=== PATIENT | female | born 1990 | race Caucasian/White ===

== ENCOUNTER 2017-06-14 21:07 | Emergency (ER) | payer OTHER, MEDICAID, SELFPAY ==
[2017-06-14 21:41] VITALS: BP 92/61; PULSE 97; RESP 16; TEMP 37.1; O2SAT 97; BMI 34.0
--- NOTE | 2017-06-15 00:24 | ED.ABDPAIN ---
HPI - Abdominal Pain General Chief Complaint: Abdominal Pain Stated Complaint: STOMACH PAINS Time Seen by Provider: 06/14/17 21:56 Source: patient and RN notes reviewed Mode of arrival: ambulatory Limitations: no limitations History of Present Illness HPI narrative: Patient is a 26-year-old female who presents with lower abdominal bloating and cramping. [facility]. Since then she has had a.. She started having cramping today no vaginal bleeding no abnormal discharge. No nausea vomiting painful or frequent urination. She is trying to get . She has been taking ibuprofen 800 mg without any relief. MD complaint: abdominal pain Onset (ago): day(s) Related Data Home Medications Medication Instructions Recorded Confirmed levonorgestrel [Liletta] 1 ea IY #0 01/19/17 Previous Rx's Medication Instructions Recorded ciprofloxacin HCl [Cipro] 500 mg PO BID 5 Days #0 tab 12/10/16 cyclobenzaprine 10 mg PO TIDP PRN #10 tab 12/10/16 meloxicam [Mobic] 7.5 mg PO BIDCC PRN #20 tab 12/10/16 meloxicam [Mobic] 15 mg PO AMCC #30 tab 01/23/17 gabapentin 100 mg PO Q8H #120 cap 02/28/17 clotrimazole 10 mg PO 5XD #70 cam 03/04/17 Allergies Allergy/AdvReac Type Severity Reaction Status Date / Time acetaminophen [From VICODIN] Allergy Unknown hives Verified 06/15/17 00:35 amoxicillin [AMOXICILLIN] Allergy Unknown hives Verified 06/15/17 00:35 cefaclor [From CECLOR] Allergy Unknown hives Verified 06/15/17 00:35 hydrocodone [From VICODIN] Allergy Unknown hives Verified 06/15/17 00:35 Review of Systems Review of Systems All systems reviewed & are unremarkable except as noted in HPI and below Constitutional Denies chills, Denies fever(s), Denies lethargy and Denies weakness Cardiovascular Denies chest pain, Denies irregular heart rhythm, Denies lightheadedness, Denies palpitations, Denies dyspnea, Denies dyspnea on exertion and Denies orthopnea Respiratory Denies cough, Denies dyspnea, Denies dyspnea on exertion and Denies wheezing Genitourinary Reports as per HPI, Reports abnormal menses, Reports pelvic pain, Denies vaginal odor and Denies vaginal pruritus Neurologic Denies weakness Endocrine Denies palpitations Allergic/Immunologic Denies wheezing PFSH Surgical History Status post delivery Status post delivery Family History Grandfather Hypertension High cholesterol Stroke Diabetes mellitus Social History Smoking Status: Current every day smoker Exam Const General: cooperative and well developed Nutritional Appearance: well nourished Orientation: alert, awake, oriented x3 and not confused Resp Effort & Inspection: normal respiratory effort, able to speak in complete sentences, no respiratory distress and no use of accessory muscles Auscultation: clear to auscultation bilaterally, no rales, no rhonchi and no wheezes Cardio Rate: regular rate Rhythm: regular rhythm Heart Sounds: no click, no gallops, no murmurs and no rubs Pulses: normal peripheral pulses GI Inspection: normal to inspection Palpation: soft and tender (Mild tenderness in suprapubic lower quadrant area) Percussion: normal to percussion Neuro General: alert, awake and oriented x3 MDM - Abdominal Pain Lab Data Attestation: I reviewed the patient's lab results. Negative urine dip clean Discharge Plan Departure Patient Disposition: Home, Self-Care Clinical Impression: Menstrual cramps Discharge Date/Time: 06/15/17 01:16 Interventions: ED Discharge Assessment Last Done: 06/15/17 01:15 Instructions: Painful Menstrual Periods Activity Restrictions/Additional Instructions: *You have been diagnosed with painful menstrual cramps *What to do: This is likely from recent removal of IUD *Take medications as directed *Follow up with your primary care provider in 2-3 days *Return to ER if you should have any new, worsening or concerning symptoms Prescriptions: No Action ciprofloxacin HCl [Cipro] 500 MG tablet 500 mg PO BID 5 Days Qty: 0 RF: 0 cyclobenzaprine 10 MG tablet 10 mg PO TIDP PRNQty: 10 RF: 0 meloxicam [Mobic] 7.5 MG tablet 7.5 mg PO BIDCC PRNQty: 20 RF: 0 levonorgestrel [Liletta] 1 EACH intrauterine device 1 ea IY Qty: 0 RF: 0 meloxicam [Mobic] 15 MG tablet 15 mg PO AMCC Qty: 30 RF: 3 gabapentin 100 MG capsule 100 mg PO Q8H Qty: 120 RF: 0 clotrimazole 10 MG yuliya 10 mg PO 5XD Qty: 70 RF: 0 Referrals: Tia Wilkins PA-C [Primary Care Provider] - Stand Alone Forms: Work/School Restrictions
[2017-06-15] MEDS: KETOROLAC 60 MG/2 ML VIAL IM (00:34)
[2017-06-15 01:15] VITALS: BP 101/65; PULSE 86; RESP 14; O2SAT 99
== END 2017-06-15 01:16 | disposition home or self-care (01) ==
PROVIDERS: Emergency Provider Emergency Medicine; PCP Physician Assistant
DX: N94.89 Other specified conditions associated with female genital organs and menstrual cycle (principal); R10.9 Unspecified abdominal pain
CPT/HCPCS: 81003; 81025; 96372; 99282; 99283; J1885

== ENCOUNTER 2018-06-22 13:29 | Emergency (ER) | payer MEDICAID, SELFPAY ==
[2018-06-22 13:32] VITALS: BP 120/81; PULSE 98; RESP 21; TEMP 36.1; O2SAT 100
[2018-06-22] MEDS: ONDANSETRON 4 MG/2 ML INJ IV (14:16)
[2018-06-22 14:17] LABS: Add Manual Diff / Slide Review NO; Basophils Absolute Auto 0 /uL (0-100); Basophils Percent Auto 0.4 % (0-2); Eosinophils Absolute Auto 100 /uL (0-450); Eosinophils Percent Auto 1.2 % (2-4); Hematocrit 33.4 % (36-46); Hemoglobin 11.2 g/dL (12.0-16.0); Lymphocytes Absolute Auto 1600 /uL (1100-4500); Lymphocytes Percent Auto 17.2 % (25-40); Mean Corpuscular HGB Conc 33.4 % (30-36); Mean Corpuscular Hemoglobin 26.9 PG (26-34); Mean Corpuscular Volume 80.5 fL (80-100); Monocytes Absolute Auto 600 /uL (0-900); Monocytes Percent Auto 6.8 % (3-14); Neutrophils Absolute Auto 7000 /uL (1500-7000); Neutrophils Percent Auto 74.4 % (50-75); Platelet Count 483 X10^3/uL (150-400); Red Blood Cell Count 4.15 X10^6/uL (4.0-5.2); White Blood Cell Count 9.5 X10^3/uL (4.5-11.0)
--- NOTE | 2018-06-22 14:26 | ED_ITS ---
HPI - Abdominal Pain <Yessica BurrisSOM - Last Filed: 06/22/18 22:20> General Chief Complaint: Abdominal Pain Stated Complaint: abdominal pain Time Seen by Provider: 06/22/18 13:55 Source: patient Mode of arrival: ambulatory Limitations: no limitations History of Present Illness HPI narrative: 27yo Female with PMH of renal calculi and anxiety, complains of diffuse 5/10 abdominal cramping x 3 weeks with associated loose stools which resolved after 1.5 weeks with probiotic use and nausea which has not resolved. Increased LLQ pain the past 3 days and R flank pain x 1 day. Eating worsens pain and nausea, hot packs slightly decrease pain. LMP was one week ago. No new sex partners in the last few months, is sexually active with consistent partner but does not use control. Denies fever, chills, SOB, chest pain, vomiting, vaginal discharges, abd sugeries, dysuria, blood in urine, or blood in stools. MD complaint: abdominal pain Onset (ago): week(s) Pain Consistency: constant Location: diffuse and LLQ Severity: moderate Severity scale (1-10): 5 Quality: cramping Radiation: R flank Relieving factors: other Exacerbating factors: eating Related Data Date of Last Menstrual Period: 06/15/18 Home Medications Medication Instructions Recorded Confirmed gabapentin 100 mg capsule 100 mg PO DAILY PRN 03/14/18 04/23/18 meloxicam 15 mg tablet 15 mg PO DAILY PRN 03/14/18 04/23/18 Previous Rx's Medication Instructions Recorded ondansetron 8 mg disintegrating 8 mg PO Q12H PRN #30 tab 06/24/17 tablet ketoconazole 2 % shampoo 1 applictn TOP 2XW #120 ml 09/24/17 clindamycin phosphate 1 % topical 1 applictn TOP DAILY #60 ml 04/23/18 solution prednisone 50 mg PO DAILY #5 tab 06/22/18 Allergies Allergy/AdvReac Type Severity Reaction Status Date / Time amoxicillin [AMOXICILLIN] Allergy Unknown Hives, Verified 04/23/18 09:51 but that was when I was young. cefaclor [From CECLOR] Allergy Unknown Hives. I Verified 04/23/18 09:51 was young. That's what my mom told me. hydrocodone [From VICODIN] AdvReac Mild hives Verified 04/23/18 09:51 Review of Systems <SOM Hernandez - Last Filed: 06/22/18 22:20> Constitutional Denies chills, Denies fatigue, Denies fever(s) and Denies increased appetite ENT Ears, Nose, Mouth, and Throat: Denies vertigo and Denies dizziness Cardiovascular Denies chest pain, Denies syncope, Denies edema and Denies dyspnea Respiratory Denies chest congestion, Denies cough and Denies dyspnea Gastrointestinal Gastrointestinal: Reports abdominal pain, Denies melena, Denies constipation, Reports diarrhea and Reports nausea Genitourinary Denies abnormal vaginal bleeding, Denies amenorrhea, Denies metrorrhagia, Denies difficulty voiding, Denies dysmenorrhea and Denies dysuria Integumentary/Breasts Denies jaundice Neurologic Denies vertigo, Denies dizziness and Denies syncope Psychiatric Reports anxiety Endocrine Denies fatigue PFSH <SOM Hernandez - Last Filed: 06/22/18 22:20> Medical History Acne (Chronic Unknown) Anxiety (Chronic 2007) Migraines (Chronic 2011) PTSD (post-traumatic stress disorder) (Chronic 2007) Painful menstruation (Chronic Unknown) Chlamydia (Resolved 2015) Gonorrhea (Resolved 2015) Kidney stones (Resolved 2016) Ovarian cyst (Resolved Unknown) Surgical History Status post delivery Status post delivery Family History Grandfather Hypertension High cholesterol Stroke Diabetes mellitus Social History Smoking Status: Current every day smoker Tobacco: How many years used: 17 quit status: not considering quitting (not at the moment.) second hand exposure: Yes alcohol intake: current (1 to 2 glasses of hard liquor a week. ) substance use type: marijuana (I smoke it daily.) Family History Grandfather Hypertension High cholesterol Stroke Diabetes mellitus Social History Smoking Status: Current every day smoker Tobacco: How many years used: 17 quit status: not considering quitting (not at the moment.) second hand exposure: Yes alcohol intake: current (1 to 2 glasses of hard liquor a week. ) substance use type: marijuana (I smoke it daily.) Exam <SOM Hernandez - Last Filed: 06/22/18 22:20> Initial Vital Signs Initial Vital Signs: Vital Signs Temperature 97.0 F L 06/22/18 13:32 Pulse Rate 98 H 06/22/18 13:32 Respiratory Rate 21 06/22/18 13:32 Blood Pressure 120/81 06/22/18 13:32 Pulse Oximetry 100 06/22/18 13:32 Const General: cooperative and well developed Nutritional Appearance: well nourished Orientation: alert, awake, oriented x3 and not confused HENMT Head: normocephalic and atraumatic Nose: No nasal discharge Face and sinus: no sinus tenderness and No dry mucous membranes Mouth: oral mucosae normal and moist mucous membranes Teeth and gingiva: dentition normal Throat: tonsils normal and uvula midline Eyes General: appearance normal, both eyes and all related structures Eyelids: eyelids normal Conjunctivae: conjunctivae normal Sclera: sclerae normal Pupils: PERRL Neck Neck: normal visual inspection, trachea midline and No midline deformity Chest Chest: normal inspection of the chest Resp Effort & Inspection: normal respiratory effort, able to speak in complete sentences, no respiratory distress and no use of accessory muscles Auscultation: clear to auscultation bilaterally, no rales, no rhonchi and no wheezes Cardio Rate: regular rate Rhythm: regular rhythm Heart Sounds: S1 normal, S2 normal, no click, no gallops, no murmurs and no rubs Pulses: normal peripheral pulses GI Inspection: normal to inspection and distended Palpation: soft, no hepatosplenomegaly, No guarding, No hepatomegaly, No pulsatile mass and tender (RUQ and pelvic region tenderness, no reboundtenderness. ) Auscultation: normal bowel sounds Back/Spine/Pelvis Back: CVA tenderness (Right flank tenderness) right Thoracic/Lumbar Spine: thoracic and lumbar spine normal to inspection Skin General: no rashes or lesions noted, No jaundice and No petechiae Neuro General: alert, oriented x3, gait normal and no focal motor deficits Speech: speech normal Extrem General: full ROM, no clubbing, cyanosis or edema, no pedal edema and no calf tenderness Psych Appearance: well kempt Mental Status: mental status grossly normal Attitude: cooperative Thought Content: normal and suicidality Judgment: judgment good <Gisela Stein DO - Last Filed: 06/23/18 19:19> Initial Vital Signs Initial Vital Signs: Vital Signs Temperature 97.0 F L 06/22/18 13:32 Pulse Rate 98 H 06/22/18 13:32 Respiratory Rate 21 06/22/18 13:32 Blood Pressure 120/81 06/22/18 13:32 Pulse Oximetry 100 06/22/18 13:32 GENERAL: Young female appears in pain HEENT: Head atraumatic,EOMI, pupils reactive, RESPIRATORY: Breath sounds equal bilaterally, no wheezes rales or rhonchi. ABDOMEN: Soft, tender all across lower abdomen more on right than left at this time. No right upper quadrant pain EXTREMITIES: Normal range of motion, no clubbing or edema. Neurovascularly intact NEUROLOGICAL: Alert and oriented x4.Normal gait and speech. SKIN: Warm, dry, no laceration, no petechiae, no rashes or lesions. Course <Yessica SOM Burris - Last Filed: 06/22/18 22:20> Orders Ordered: Discontinued Medications Ketorolac Tromethamine (Toradol) 30 mg IV NOW ONE Stop: 06/22/18 14:36 Last Admin: 06/22/18 14:46 Dose: 30 mg Ondansetron HCl (Zofran) 4 mg IV NOW ONE Stop: 06/22/18 14:07 Last Admin: 06/22/18 14:16 Dose: 4 mg Reevaluation(s) Reevaluation #1: Re-evaluated with Dr. Stein. Patient is cracking still operator now localizing more on RLQ and RUQ Time: 14:52 Vital Signs - 8 hr 06/22/18 15:38 06/22/18 16:05 06/22/18 16:19 Pulse Rate 72 82 88 Respiratory Rate 18 15 20 Blood Pressure 114/72 Blood Pressure [Left Arm] 96/57 L 97/55 L Pulse Oximetry 98 100 100 <Gisela Stein DO - Last Filed: 06/23/18 19:19> Orders Ordered: Discontinued Medications Ketorolac Tromethamine (Toradol) 30 mg IV NOW ONE Stop: 06/22/18 14:36 Last Admin: 06/22/18 14:46 Dose: 30 mg Ondansetron HCl (Zofran) 4 mg IV NOW ONE Stop: 06/22/18 14:07 Last Admin: 06/22/18 14:16 Dose: 4 mg Vital Signs - 8 hr 06/22/18 15:38 06/22/18 16:05 06/22/18 16:19 Pulse Rate 72 82 88 Respiratory Rate 18 15 20 Blood Pressure 114/72 Blood Pressure [Left Arm] 96/57 L 97/55 L Pulse Oximetry 98 100 100 MDM - Abdominal Pain <SOM Hernandez - Last Filed: 06/22/18 22:20> Differential Diagnosis Differential diagnosis: Likely abdominal pain, calculus of kidney and other ( IBD) Medical Records Attestation: I reviewed the patient's medical records. Lab Data Attestation: I reviewed the patient's lab results. Result diagrams: 06/22/18 14:10 06/22/18 14:10 Lab Results 06/22/18 06/22/18 Range/Units 14:10 14:10 WBC 9.5 (4.5-11.0) X10^3/uL RBC 4.15 (4.0-5.2) X10^6/uL Hgb 11.2 L (12.0-16.0) g/dL Hct 33.4 L (36-46) % MCV 80.5 (80-100) fL MCH 26.9 (26-34) PG MCHC 33.4 (30-36) % RDW 14.0 (11.6-14.8) % Plt Count 483 H (150-400) X10^3/uL Neut % (Auto) 74.4 (50-75) % Lymph % (Auto) 17.2 L (25-40) % [place] % (Auto) 6.8 (3-14) % Eos % (Auto) 1.2 L (2-4) % Baso % (Auto) 0.4 (0-2) % Neut # (Auto) 7000 (1233-4398) /uL Lymph # (Auto) 1600 (4604-7428) /uL [place] # (Auto) 600 (0-900) /uL Eos # (Auto) 100 (0-450) /uL Baso # (Auto) 0 (0-100) /uL Sodium 136 L (137-145) mmol/L Potassium 3.6 (3.4-5.1) mmol/L Chloride 100 (98-107) mmol/L Carbon Dioxide 26 (22-32) mmol/L BUN 9 (7-17) mg/dL Creatinine 0.60 (0.52-1.04) mg/dL Estimated GFR > 60.0 (>60) mL/min BUN/Creatinine Ratio 15.0 (6-22) Glucose 89 (70-100) mg/dL Calcium 9.2 (8.4-10.2) mg/dL Total Bilirubin 0.6 (0.2-1.3) mg/dL AST 42 H (14-36) IU/L ALT 47 (9-52) IU/L Alkaline Phosphatase 130 H (38-126) U/L Total Protein 7.3 (6.3-8.2) g/dL Albumin 4.0 (3.5-5.0) g/dL Globulin 3.3 (1.7-4.1) g/dL Albumin/Globulin Ratio 1.2 (1.0-2.8) Lipase 34 (23-300) U/L Point of care testing: Point of Care Testing Test Results Negative Urine Dip Bedside Urine Glucose Negative Bedside Urine Bilirubin - Negative Bedside Urine Ketone +/- 5 Urine Specific [place] 1.010 Bedside Urine Occult Blood +/- Bedside Urine pH 6.5 Bedside Urine Protein - Negative Bedside Urine Urobilinogen - Negative Bedside Urine Nitrite - Negative Bedside Urine Leukocytes - Negative Esterase Imaging Data CT scan - abdomen: Radiologist's impression: [place] [address] CT Scan Report Signed Patient: Keli Murillo MR#: [id number] : 1990 Acct:[id number] Age/Sex: 27 / F Date of Service: 06/22/18 Loc: ED Accession Number: [id number] Procedure: CT abdomen pelvis w con Ordering Provider: Yessica Burris PROCEDURE: CT ABDOMEN PELVIS W CON INDICATIONS: RLQ LLQ tenderness with n/d TECHNIQUE: After the administration of oral and intravenous contrast, 5 mm thick sections acquired from the diaphragms to the symphysis. 5 mm thick coronal and sagittal reformats were performed. For radiation dose reduction, the following was used: automated exposure control, adjustment of mA and/or kV according to patient size. COMPARISON: [facility], CT, KIDNEY/ URETER/BLADDER, 12/10/2016, 7:27. FINDINGS: Image quality: Diagnostic. ABDOMEN: Lung bases: Lung bases are clear. Heart size is normal. Solid organs: 2 small wedge-shaped areas of vague low-attenuation are seen within the left hepatic lobe, which are felt to represent areas of hepatic steatosis (image 23 and image 29, series 2). A more focally prominent rounded area of decreased density is identified along the periphery of the posterior right hepatic lobe that measures approximately 1.4 x 1.0 cm (image 25, series 2), which is not adequately characterized, but may represent a hemangioma. The spleen, adrenals, and pancreas are within normal limits. There is a moderate-sized calcification with associated adjacent parenchymal scarring involving the posterior aspect of the mid left kidney that measures up to 8 mm in diameter. An additional nonobstructing anteriorly positioned 3 mm calculus is also present with associated anteriorly. There is no hydronephrosis. No ureteral calculi are evident. No hydroureter is appreciated. Peritoneum and bowel: The stomach and duodenum are unremarkable. 2 small bowel loops within the mid lower abdomen/pelvis demonstrate prominent wall thickening with associated surrounding mesenteric edema. Soft tissue nodules located between these 2 distended small bowel loops could potentially represent a fistulous tract or intervening enlarged mesenteric lymph nodes (image 19, series 4 and image 70, series 2). The ap pendix is well-visualized and normal. A small amount of free fluid adjacent to the inflamed bowel loops within the mid to lower abdomen are present. The colon is within normal limits. There is no drainable fluid collection or free air. Nodes and vessels: No retroperitoneal or mesenteric adenopathy. Aorta and inferior vena cava are normal in caliber. Bones: No acute fractures or suspicious osseous lesions are present. PELVIS: Soft tissues: Bladder wall thickness is normal. The uterus and ovaries are not well evaluated. The ovaries are prominent in size. No large ovarian cyst is evident. There is a small amount of free fluid seen within the pelvis. No drainable fluid collections or free air is evident. No inguinal hernias are present. No pelvic adenopathy is identified. Bones: No suspicious bony lesions. No acute pelvic fractures are evident. IMPRESSION: 1. Prominent wall thickening of 2 adjacent small bowel loops may represent an infectious or inflammatory process. Clinical correlation to exclude Crohn's disease is recommended. 2. Soft tissue density between these adjacent small bowel loops within the mesentery could potentially represent a developing fistulous tract, mildly prominent intervening mesenteric lymph nodes, or contained perforation. Clinical correlation is recommended. 3. Small amount of free fluid within the pelvis is likely reactive. There is no drainable abscess. 4. No bowel obstruction. 5. Nonobstructing right renal calculi with areas of parenchymal scarring. 6. Low-attenuation lesion within the posterior right hepatic lobe may represent a hemangioma versus cyst. MRI is recommended with intravenous contrast for further evaluation. Dictated by: Daryl Jacobson M.D. on 06/22/2018 at 14:27 Approved by: Daryl Jacobson M.D. on 06/22/2018 at 14:44 MDM Narrative Medical decision making narrative: Consider possible Crohn's disease due to inflammatory findings on CT, abdominal tenderness, and ongoing to diarrhea and nausea. Discussed a trial prednisone to see if symptoms resolve. Discussed the importance of follow up for colonoscopy as recommended by the radiologist. Connected patient with resources to find a place that accepts her insurance. Briefly discussed the findings of liver cysts on the CT. Renal stone less likely as it remains in renal pelvis an urine is clear. This likely infection due to normal WBC count an absence of fever. Strict return precautions given the patient understands the importance of follow-up. <Gisela Stein, DO - Last Filed: 06/23/18 19:19> Lab Data Lab Results 06/22/18 06/22/18 Range/Units 14:10 14:10 WBC 9.5 (4.5-11.0) X10^3/uL RBC 4.15 (4.0-5.2) X10^6/uL Hgb 11.2 L (12.0-16.0) g/dL Hct 33.4 L (36-46) % MCV 80.5 (80-100) fL MCH 26.9 (26-34) PG MCHC 33.4 (30-36) % RDW 14.0 (11.6-14.8) % Plt Count 483 H (150-400) X10^3/uL Neut % (Auto) 74.4 (50-75) % Lymph % (Auto) 17.2 L (25-40) % [place] % (Auto) 6.8 (3-14) % Eos % (Auto) 1.2 L (2-4) % Baso % (Auto) 0.4 (0-2) % Neut # (Auto) 7000 (3721-8342) /uL Lymph # (Auto) 1600 (7668-0454) /uL [place] # (Auto) 600 (0-900) /uL Eos # (Auto) 100 (0-450) /uL Baso # (Auto) 0 (0-100) /uL Sodium 136 L (137-145) mmol/L Potassium 3.6 (3.4-5.1) mmol/L Chloride 100 (98-107) mmol/L Carbon Dioxide 26 (22-32) mmol/L BUN 9 (7-17) mg/dL Creatinine 0.60 (0.52-1.04) mg/dL Estimated GFR > 60.0 (>60) mL/min BUN/Creatinine Ratio 15.0 (6-22) Glucose 89 (70-100) mg/dL Calcium 9.2 (8.4-10.2) mg/dL Total Bilirubin 0.6 (0.2-1.3) mg/dL AST 42 H (14-36) IU/L ALT 47 (9-52) IU/L Alkaline Phosphatase 130 H (38-126) U/L Total Protein 7.3 (6.3-8.2) g/dL Albumin 4.0 (3.5-5.0) g/dL Globulin 3.3 (1.7-4.1) g/dL Albumin/Globulin Ratio 1.2 (1.0-2.8) Lipase 34 (23-300) U/L Point of care testing: Point of Care Testing Test Results Negative Urine Dip Bedside Urine Glucose Negative Bedside Urine Bilirubin - Negative Bedside Urine Ketone +/- 5 Urine Specific [place] 1.010 Bedside Urine Occult Blood +/- Bedside Urine pH 6.5 Bedside Urine Protein - Negative Bedside Urine Urobilinogen - Negative Bedside Urine Nitrite - Negative Bedside Urine Leukocytes - Negative Esterase Discharge Plan Departure Patient Disposition: Home Clinical Impression: Bowel disease, inflammatory Abdominal pain Qualifiers: Abdominal location: unspecified location Qualified Code(s): R10.9 - Unspecified abdominal pain Discharge Date/Time: 06/22/18 16:19 Interventions: ED Discharge Assessment Last Done: 06/22/18 16:19 Instructions: DI for Crohn's Disease, DI for Abdominal Pain-Adult Activity Restrictions/Additional Instructions: Your CT suggests that further studies such as a colonoscopy would be helpful in determining the specific cause of your abdominal pain. It is possible that you may have an inflammatory bowel process such as Crohn's Disease. I prescribed a steroid to decrease inflammation which will in turn decrease your pain. However, please follow up with the resources provided to assist you in obtaining a primary care provider and a colonoscopy. Return to the ED if you have chest pain, syncope, sudden and severe abdominal pain. Prescriptions: New prednisone 50 mg tablet 50 mg PO DAILY Qty: 5 RF: 0 No Action ondansetron 8 mg tablet,disintegrating 8 mg PO Q12H PRN (Reason: nausea and vomiting) Qty: 30 RF: 0 clindamycin phosphate 1 % solution 1 applictn TOP DAILY Qty: 60 RF: 0 ketoconazole 2 % shampoo 1 applictn TOP 2XW Qty: 120 RF: 6 meloxicam 15 mg tablet 15 mg PO DAILY PRNRF: 0 gabapentin 100 mg capsule 100 mg PO DAILY PRNRF: 0 Referrals: [facility] Resources [Outside] <Gisela Stein DO - Last Filed: 06/23/18 19:19> [place] Attending Te Attestation: I was immediately available in the department for consultation. Documentation has been reviewed. I agree with assessment and plan.
[2018-06-22 14:36] LABS: Alanine Aminotransferase 47 IU/L (9-52); Albumin Globulin Ratio 1.2 (1.0-2.8); Alkaline Phosphatase 130 U/L (38-126); Aspartate Aminotransferase 42 IU/L (14-36); Bilirubin Total 0.6 mg/dL (0.2-1.3); Blood Urea Nitrogen 9 mg/dL (7-17); Calcium 9.2 mg/dL (8.4-10.2); Carbon Dioxide 26 mmol/L (22-32); Chloride 100 mmol/L (98-107); Estimated Glomerular Filt Rate > 60.0 mL/min (>60); Globulin 3.3 g/dL (1.7-4.1); Glucose 89 mg/dL (70-100); HEMOLYSIS < 15 (0-50); Lipase 34 U/L (23-300); Potassium 3.6 mmol/L (3.4-5.1); Sodium 136 mmol/L (137-145); Total Protein 7.3 g/dL (6.3-8.2)
[2018-06-22] MEDS: KETOROLAC 60 MG/2 ML VIAL 30 MG IV (14:46)
--- NOTE | 2018-06-22 14:52 | DI.CT.S_ITS ---
PROCEDURE: CT ABDOMEN PELVIS W CON INDICATIONS: RLQ LLQ tenderness with n/d TECHNIQUE: After the administration of oral and intravenous contrast, 5 mm thick sections acquired from the diaphragms to the symphysis. 5 mm thick coronal and sagittal reformats were performed. For radiation dose reduction, the following was used: automated exposure control, adjustment of mA and/or kV according to patient size. COMPARISON: [facility], CT, KIDNEY/ URETER/BLADDER, 12/10/2016, 7:27. FINDINGS: Image quality: Diagnostic. ABDOMEN: Lung bases: Lung bases are clear. Heart size is normal. Solid organs: 2 small wedge-shaped areas of vague low-attenuation are seen within the left hepatic lobe, which are felt to represent areas of hepatic steatosis (image 23 and image 29, series 2). A more focally prominent rounded area of decreased density is identified along the periphery of the posterior right hepatic lobe that measures approximately 1.4 x 1.0 cm (image 25, series 2), which is not adequately characterized, but may represent a hemangioma. The spleen, adrenals, and pancreas are within normal limits. There is a moderate-sized calcification with associated adjacent parenchymal scarring involving the posterior aspect of the mid left kidney that measures up to 8 mm in diameter. An additional nonobstructing anteriorly positioned 3 mm calculus is also present with associated anteriorly. There is no hydronephrosis. No ureteral calculi are evident. No hydroureter is appreciated. Peritoneum and bowel: The stomach and duodenum are unremarkable. 2 small bowel loops within the mid lower abdomen/pelvis demonstrate prominent wall thickening with associated surrounding mesenteric edema. Soft tissue nodules located between these 2 distended small bowel loops could potentially represent a fistulous tract or intervening enlarged mesenteric lymph nodes (image 19, series 4 and image 70, series 2). The appendix is well-visualized and normal. A small amount of free fluid adjacent to the inflamed bowel loops within the mid to lower abdomen are present. The colon is within normal limits. There is no drainable fluid collection or free air. Nodes and vessels: No retroperitoneal or mesenteric adenopathy. Aorta and inferior vena cava are normal in caliber. Bones: No acute fractures or suspicious osseous lesions are present. PELVIS: Soft tissues: Bladder wall thickness is normal. The uterus and ovaries are not well evaluated. The ovaries are prominent in size. No large ovarian cyst is evident. There is a small amount of free fluid seen within the pelvis. No drainable fluid collections or free air is evident. No inguinal hernias are present. No pelvic adenopathy is identified. Bones: No suspicious bony lesions. No acute pelvic fractures are evident. IMPRESSION: 1. Prominent wall thickening of 2 adjacent small bowel loops may represent an infectious or inflammatory process. Clinical correlation to exclude Crohn's disease is recommended. 2. Soft tissue density between these adjacent small bowel loops within the mesentery could potentially represent a developing fistulous tract, mildly prominent intervening mesenteric lymph nodes, or contained perforation. Clinical correlation is recommended. 3. Small amount of free fluid within the pelvis is likely reactive. There is no drainable abscess. 4. No bowel obstruction. 5. Nonobstructing right renal calculi with areas of parenchymal scarring. 6. Low-attenuation lesion within the posterior right hepatic lobe may represent a hemangioma versus cyst. MRI is recommended with intravenous contrast for further evaluation. Dictated by: Daryl Jacobsno M.D. on 06/22/2018 at 14:27 Approved by: Daryl Jacobson M.D. on 06/22/2018 at 14:44
[2018-06-22 15:38] VITALS: BP 96/57; PULSE 72; RESP 18; O2SAT 98
[2018-06-22 16:05] VITALS: BP 97/55; PULSE 82; RESP 15; O2SAT 100
[2018-06-22 16:19] VITALS: BP 114/72; PULSE 88; RESP 20; O2SAT 100
== END 2018-06-22 16:19 | disposition home or self-care (01) ==
PROVIDERS: Emergency Provider Nurse Practitioner
DX: R10.9 Unspecified abdominal pain (principal); R11.2 Nausea with vomiting, unspecified; R19.7 Diarrhea, unspecified
CPT/HCPCS: 36591; 74177; 80053; 81003; 81025; 83690; 85025; 96374; 96375; 99283; 99285; J1885; J2405; Q9967

== ENCOUNTER → 2019-02-28 14:41 | Outpatient (CLI) | payer BC, SELFPAY | PROVIDERS: PCP Physician Assistant; Visit Provider Physician Assistant | DX: J02.9 Acute pharyngitis, unspecified (principal) | CPT/HCPCS: 87070; 87077; 87147 ==

== ENCOUNTER → 2019-04-12 13:12 | Outpatient (CLI) | payer SELFPAY | PROVIDERS: PCP Physician Assistant; Visit Provider Physician Assistant | DX: J02.9 Acute pharyngitis, unspecified (principal) | CPT/HCPCS: 87070 ==

== ENCOUNTER 2019-09-17 10:27 | Emergency (ER) | payer OTHER, MEDICAID, SELFPAY ==
[2019-09-17 10:30] VITALS: BP 134/82; PULSE 101; RESP 15; TEMP 36.9; O2SAT 100; BMI 30.7
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
[2019-09-17] MEDS: IBUPROFEN 400 MG TABLET PO (11:39)
[2019-09-17] MEDS: ACETAMINOPHEN 325 MG TABLET 650 MG PO (11:39)
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
[2019-09-17] MEDS: BACITRACIN OINT 0.9 GM PCKT 1 APPLIC TOP (12:07)
[2019-09-17] MEDS: LIDO 1%/SOD BICARB 8.4% (10ML) 10 ML SYRINGE INJ (12:07)
[2019-09-17 12:46] VITALS: BP 126/75; PULSE 89; RESP 16; O2SAT 100
== END 2019-09-17 12:47 | disposition home or self-care (01) ==
PROVIDERS: Emergency Provider Nurse Practitioner Family; PCP Family Medicine
DX: S93.401A Sprain of unspecified ligament of right ankle, initial encounter (principal); S61.211A Laceration without foreign body of left index finger without damage to nail, initial encounter; S40.022A Contusion of left upper arm, initial encounter; V49.9XXA Car occupant (driver) (passenger) injured in unspecified traffic accident, initial encounter
CPT/HCPCS: 12001; 29540; 70450; 72125; 73140; 73610; 73630; 99284